=== PATIENT | female | born 1940 | race Caucasian/White ===

== ENCOUNTER → 2016-10-20 | Outpatient (CLI) | payer OTHER ==
--- NOTE | 2016-10-20 16:47 | DX ---
Cervical Spine, Four views including lateral flexion and extension views History: Pain, evaluate for instability, spinal stenosis M43.26, M48.02 Technique: Upright AP, lateral neutral, lateral flexion, and lateral extension. Comparison: November 10, 2015 Findings: Mild 3mm spondylolisthesis at C4-C5 was present previously. It subtly increases in flexion and subtotally reduces in extension. Mild retrolisthesis at C5-C6 reduces in flexion and increases to approximately 2.5 mm in extension. A mild spondylolisthesis at C7-T1 does not significantly change i n flexion and extension. Moderate disk space narrowing between C5 and C7 is stable x12 months. Minera lization remains normal. There is no prevertebral soft tissue swelling. There is chronic bilateral mu ltilevel facet degenerative change. Impression: Mild instability described above between C4 and C6. Multilevel spondylosis is not signifi cantly changed.
== END ==
LOC: FIMAGING 11:15
PROVIDERS: ATTEND Physician Assistant Surgical
DX: M47.892 Other spondylosis, cervical region (principal)

== ENCOUNTER → 2016-11-15 | Outpatient (CLI) | payer OTHER | LOC: CIMAGING 10:22 | PROVIDERS: ATTEND Internal Medicine | DX: R05 Cough (principal) | CPT/HCPCS: 71020-PO ==

== ENCOUNTER → 2016-11-22 | Outpatient (CLI) | payer OTHER | LOC: CLAB 15:46 | PROVIDERS: ATTEND Internal Medicine | DX: R05 Cough (principal); R09.89 Other specified symptoms and signs involving the circulatory and respiratory systems | CPT/HCPCS: 71020-PO ==

== ENCOUNTER → 2017-08-23 | Outpatient (CLI) | payer OTHER | LOC: FIMAGING 11:27 | PROVIDERS: ATTEND Physician Assistant Surgical | DX: M43.26 Fusion of spine, lumbar region (principal); M48.02 Spinal stenosis, cervical region; M51.36 Other intervertebral disc degeneration, lumbar region ==

== ENCOUNTER → 2017-11-30 | Outpatient (CLI) | payer OTHER | LOC: BRMIMAGING 14:07 | PROVIDERS: ATTEND Internal Medicine | DX: Z13.820 Encounter for screening for osteoporosis (principal); M85.89 Other specified disorders of bone density and structure, multiple sites | CPT/HCPCS: 36415-PO; 80053-PO; 80061-PO; 84443-PO; 85025-PO ==

== ENCOUNTER → 2018-11-14 | Outpatient (CLI) | payer OTHER | LOC: FIMAGING 11:13 | PROVIDERS: ATTEND Physician Assistant Surgical | DX: M43.26 Fusion of spine, lumbar region (principal); M48.02 Spinal stenosis, cervical region; M51.36 Other intervertebral disc degeneration, lumbar region ==

== ENCOUNTER → 2018-12-25 | Outpatient (CLI) | payer OTHER | LOC: EMCIMAGING 09:42 | PROVIDERS: ATTEND Internal Medicine | DX: Z13.820 Encounter for screening for osteoporosis (principal); Z78.0 Asymptomatic menopausal state; M85.89 Other specified disorders of bone density and structure, multiple sites | CPT/HCPCS: 77080-PN ==

== ENCOUNTER → 2019-03-07 | Outpatient (CLI) | payer OTHER | LOC: CLAB 09:33 → CIMAGING 09:54 | DX: J06.9 Acute upper respiratory infection, unspecified (principal); M25.539 Pain in unspecified wrist ==

== ENCOUNTER → 2019-03-20 | Outpatient (CLI) | payer OTHER | LOC: FIMAGING 09:31 ==